=== PATIENT | female | born 1970 | race Caucasian/White ===

== ENCOUNTER 2018-11-07 09:44 | Emergency (ER) | payer SELFPAY ==
[2018-11-07] MEDS ORDERED: Aspirin 81 mg CHEW TAB* 81 MG TAB.CHEW PO ONE (09:58)
[2018-11-07 10:04] VITALS: BP 115/82
--- NOTE | 2018-11-07 10:09 | UC ---
UC General HPI - HPI Summary HPI Summary: 48 yo female c/o progressive chest pain. Sx started several days ago with mid- epi abd discomfort. Took digestive enzymes, had bowel movement yesterday, with minimal help. Since yesterday symptoms. Since yesterday notes that pain has increased and modified to ant mid chest, extending up to ant mid sup chest, extending to both sides of neck. Pain constant but increases with both inspiration < expiration. No rash. No reported hx similar sx. - History of Current Complaint Stated Complaint: EARS,CONGESTION,STOMACH ACHE Hx Obtained From: Patient Hx Last Menstrual Period: n/a Onset/Duration: Gradual Onset Onset Severity: Moderate Current Severity: Severe - Allergy/Home Medications Allergies/Adverse Reactions: Allergies Allergy/AdvReac Type Severity Reaction Status Date / Time codeine Allergy Hallucinati Verified 11/07/18 10:00 ons Home Medications: Home Medications NK [No Home Medications Reported] 11/07/18 [History Confirmed 11/07/18] PMH/Surg Hx/FS Hx/Imm Hx Previously Healthy: Yes - Surgical History Surgical History: Yes Surgery Procedure, Year, and Place: hysterectomy; right oopherectomy - Family History Known Family History: Positive: Hypertension - Social History Alcohol Use: Occasionally Substance Use Type: Excessive Caffeine Smoking Status (MU): Heavy Every Day Tobacco Smoker Type: Cigarettes Amount Used/How Often: 1 PPD Length of Time of Smoking/Using Tobacco: 24 Years Have You Smoked in the Last Year: Yes Household Exposure Type: Cigarettes Review of Systems All Other Systems Reviewed And Are Negative: Yes Constitutional: Positive: Fatigue Skin: Positive: Negative Eyes: Positive: Negative ENT: Positive: Sore Throat, Ear Ache Respiratory: Positive: Negative Cardiovascular: Positive: Chest Pain Gastrointestinal: Positive: Abdominal Pain Genitourinary: Positive: Negative Motor: Positive: Negative Neurovascular: Positive: Negative Musculoskeletal: Positive: Negative Neurological: Positive: Negative Psychological: Positive: Negative Is Patient Immunocompromised?: No Physical Exam Triage Information Reviewed: Yes Appearance: Well-Nourished - examined on stretcher. Conversing in full sentances. Looks tired, uncomfortable, tearful. Able to lie back fully. MM a little dry. Vital Signs Reviewed: Yes Eye Exam: Normal ENT Exam: Other - TM R a little graff, good light reflex. L TM perly white, good light reflex Trachea midline. Tender L submad region, but without porsche enlarged node appreciated. Trachea midline. No carotid bruit appreciated. No crepitus Neck exam: Other - see above Neck: Positive: Supple Respiratory Exam: Other - BS equal and clear. No adventitious sounds. No crepitus. No discoloration / rash. Resp rate regular. Cardiovascular Exam: Normal Cardiovascular: Positive: RRR, No Murmur, Pulses Normal, Brisk Capillary Refill Abdominal Exam: Other - No c/o tender with direct exam. No porsche hsm. + BS soft, nd. No porsche bruit. Musculoskeletal Exam: Normal - moves x 4 ext's Neurological Exam: Normal Psychological Exam: Normal - conversing easily and appropriately Skin Exam: Normal - nondiaphoretic. No visible or reported rash Course/Dx - Course Course Of Treatment: EKG SR 87 bpm. LATRICIA. TX 157. qtc 451. No old available for comp. Reviewed coa / tx plan with Ms. Mane. Encourage eval / tx gael in Emergency Department. Understandably she is disappointed, but after several minutes of careful consideration, she agrees to go to ED. She wishes to go to [facility]. Offered EMS, politely but firmly declines. Asa 324mg po x 1 here. Questions as posed answered to the best of my ability. D/w Dr. Baez, [facility] approx 10:20am. - Diagnoses Provider Diagnosis: Chest pain, Abdominal pain Discharge - Sign-Out/Discharge Documenting (check all that apply): Patient Departure All imaging exams completed and their final reports reviewed: No Studies - Discharge Plan Condition: Guarded Disposition: HOME-RECOMMEND TO ED Patient Education Materials: Chest Pain (ED), Acute Abdominal Pain (ED) Referrals: No Primary Care Phys,NOPCP [Primary Care Provider] - Additional Instructions: Please go directly to the Emergency Department. Stpp and call 911 if any problems in the meantime. - Billing Disposition and Condition Condition: GUARDED Disposition: Home-Recommend to ED
== END 2018-11-07 10:25 | disposition home health service (06) ==
LOC: UCCORT 09:44
DX: R07.9 Chest pain, unspecified (principal); R10.9 Unspecified abdominal pain; F17.210 Nicotine dependence, cigarettes, uncomplicated; Z88.5 Allergy status to narcotic agent
CPT/HCPCS: 93005; 99212; A9270-GY; G0463

== ENCOUNTER 2019-04-28 09:36 | Emergency (ER) | payer SELFPAY ==
[2019-04-28 09:51] VITALS: BP 111/83
--- NOTE | 2019-04-28 10:13 | UC ---
Skin Complaint HPI - HPI Summary HPI Summary: 1. cold sores on lower lips x 2 weeks. the area is painful , severity is 6 out of 10 , worse with touch, better with moisturizing not getting any better over the past 2 weeks. no fever, no chills, no cold symptoms 2. neck pain x 2 weeks pain is 7 out of 10 , worse with movement of her neck , better with rest, no known injury - History of Current Complaint Chief Complaint: UCSkin Time Seen by Provider: 04/28/19 09:58 Stated Complaint: SKIN CONCERN Hx Obtained From: Patient Hx Last Menstrual Period: n/a ?: No Onset/Duration: Gradual Onset, Lasting Weeks - 2, Still Present Timing: Constant Onset Severity: Moderate Current Severity: Moderate Pain Intensity: 6 Location: Other - lower lip Character: Swelling, Pain, Redness, Raised, Painful Aggravating Factor(s): Touch Alleviating Factor(s): Nothing Associated Signs & Symptoms: Positive: Tenderness. Negative: Nausea, Vomiting, Fever, Chills, Cough, Wheezing - Allergy/Home Medications Allergies/Adverse Reactions: Allergies Allergy/AdvReac Type Severity Reaction Status Date / Time codeine Allergy Hallucinati Verified 04/28/19 09:51 ons Home Medications: Home Medications Famotidine 1 tab PO DAILY 04/28/19 [History Confirmed 04/28/19] Lysine 2 tab PO DAILY 04/28/19 [History Confirmed 04/28/19] Omeprazole 1 tab PO DAILY 04/28/19 [History Confirmed 04/28/19] PMH/Surg Hx/FS Hx/Imm Hx - Additional Past Medical History Additional PMH: Anxiety, Carpal Tunnel, Migraines Respiratory History: Asthma - Surgical History Surgical History: Yes Surgery Procedure, Year, and Place: hysterectomy; right oopherectomy - Family History Known Family History: Positive: Hypertension - Social History Alcohol Use: Rare Substance Use Type: Excessive Caffeine Smoking Status (MU): Heavy Every Day Tobacco Smoker Type: Cigarettes Amount Used/How Often: 1 PPD Length of Time of Smoking/Using Tobacco: 24 Years Have You Smoked in the Last Year: Yes Household Exposure Type: Cigarettes Review of Systems All Other Systems Reviewed And Are Negative: Yes Constitutional: Positive: Negative Eyes: Positive: Negative Is Patient Immunocompromised?: No Physical Exam Triage Information Reviewed: Yes Appearance: Well-Appearing, No Pain Distress, Well-Nourished Vital Signs: Initial Vital Signs Temp 99.1 F 04/28/19 09:45 Pulse 78 04/28/19 09:45 Resp 18 04/28/19 09:45 BP 111/83 04/28/19 09:45 Pulse Ox 100 04/28/19 09:45 Vital Signs Reviewed: Yes Eye Exam: Normal Eyes: Positive: Conjunctiva Clear ENT: Positive: Normal ENT inspection, Hearing grossly normal, Pharynx normal Neck: Positive: Tenderness @, Other: - pain with ROM Respiratory Exam: Normal Respiratory: Positive: Chest non-tender, Lungs clear, Normal breath sounds Cardiovascular: Positive: RRR, No Murmur, Pulses Normal Skin: Positive: Other - visucular lesion lower lips cw cold sores Course/Dx - Diagnoses Provider Diagnosis: Herpes labialis, Neck strain Discharge - Sign-Out/Discharge Documenting (check all that apply): Patient Departure All imaging exams completed and their final reports reviewed: No Studies - Discharge Plan Condition: Stable Disposition: HOME Prescriptions: Cyclobenzaprine TAB* [Flexeril 10 MG TAB*] 10 mg PO BID PRN #20 tab PRN Reason: Pain Naproxen [Naproxen 500 mg tab] 500 mg PO BID #20 tablet. Valacyclovir HCl [Valtrex] 500 mg PO BID #10 tablet Patient Education Materials: Oral Herpes Simplex Virus Infections (ED), Acute Neck Pain (ED) Referrals: No Primary Care Phys,NOPCP [Primary Care Provider] - 7 Days - Billing Disposition and Condition Condition: STABLE Disposition: Home
== END 2019-04-28 10:12 | disposition home or self-care (01) ==
LOC: UCCORT 09:36
DX: B00.1 Herpesviral vesicular dermatitis (principal); S16.1XXA Strain of muscle, fascia and tendon at neck level, initial encounter; X58.XXXA Exposure to other specified factors, initial encounter; F17.210 Nicotine dependence, cigarettes, uncomplicated; Z79.899 Other long term (current) drug therapy
CPT/HCPCS: 99212; G0463